=== PATIENT | female | born 1970 ===

== ENCOUNTER 2023-07-23 07:20 | Day surgery (SDC) | payer OTHER ==
[~2023-07-23] VITALS: Ht 167.6 cm; Wt 51.4 kg
[2023-07-23] MEDS ORDERED: NORVASC2.5 MG PO (07:42)
[2023-07-23 07:54] VITALS: BP 150/91; PULSE 68; TEMP 97.4
[2023-07-23 09:00] VITALS: BP 110/85; PULSE 81; TEMP 97.2
--- NOTE | 2023-07-23 09:00 | NUR ---
The patient arrived back to [facility] from the endoscopy suite and appears alert and oriented at this time. The patient ambulated from the cart to the recliner in her room with the stand by assistance of two nurses and appeared to tolerate the activity well. Vital signs were started at this time. The patient agrees to try some ice water and chocolate pudding. Call light is within reach. Sister at bedside. Warm blanket provided.
[2023-07-23 09:15] VITALS: BP 126/88; PULSE 62
--- NOTE | 2023-07-23 09:15 | NUR ---
The patient appears to be tolerating the water and pudding well and requests another pudding. Vital signs appear stable. [facility].
[2023-07-23 09:30] VITALS: BP 148/89; PULSE 62
--- NOTE | 2023-07-23 09:30 | NUR ---
The patient appears to be resting comfortablty in the recliner. Sister at bedside. Denies any further needs.
[2023-07-23 09:50] VITALS: BP 160/94; PULSE 60
--- NOTE | 2023-07-23 10:00 | NUR ---
The patient was escorted out via wheelchair to a private vehicle by ALBERT Pineda. The patient's belongings and discharge paperwork were sent with her. The patient's sister is present to drive her home.
--- NOTE | 2023-07-23 10:50 | NUR ---
Dr. Jackson has spoke with the patient and she voices a desire to be discharged home. Discharge instructions were reviewed with the patient and her sister. They both verbalized understanding and have no questions for the nurse at this time. The patient was instructed to get dressed and notify the staff when she is ready to be escorted out.
== END 2023-07-23 10:00 | disposition home or self-care (01) ==
LOC: SDCO 07:20
DX: Z12.11 Encounter for screening for malignant neoplasm of colon (principal); D12.5 Benign neoplasm of sigmoid colon; K22.2 Esophageal obstruction; I10 Essential (primary) hypertension; Z87.891 Personal history of nicotine dependence
CPT/HCPCS: J2704; J7120

== ENCOUNTER 2023-12-03 07:44 | Day surgery (SDC) | payer SELFPAY ==
[~2023-12-03] VITALS: Ht 167.6 cm; Wt 60.6 kg
[~2023-12-03 07:44] MED LIST: LR 1,000 ML IV SCH; NORVASC2.5 MG PO; Ondansetron 4 MG/2 ML VIAL IV PRN; PRILOTC
[2023-12-03] MEDS ORDERED: Lidocaine PF 2% (20 MG/ML) 5 ML VIAL ONE (08:18)
[2023-12-03] MEDS ORDERED: Glycopyrrolate 0.2 MG/ML 1 ML VIAL ONE (08:18)
[2023-12-03 09:27] VITALS: BP 172/91; PULSE 55; TEMP 97.8
[2023-12-03 09:55] VITALS: BP 147/93; PULSE 82; TEMP 98.2
[2023-12-03 10:10] VITALS: BP 139/88; PULSE 74
[2023-12-03 10:20] VITALS: BP 138/75; PULSE 78
--- NOTE | 2023-12-03 17:29 | NUR ---
[id number]: PT TO RECOVERY BAY 9 FROM ENDO S/P EGD WITH DILATION A&O, PLACED ON MONITOR, VSS ON RA RECEIVED REPORT AND ASSUMED CARE OF PT FROM RN BOO OGDEN AT BEDSIDE PROVIDED FOOD/FLUIDS, TOLERATING WELL DR IN TO SEE PT/FAMILY FOLLOWING PROCEDURE PT HAS REMAINED A&O, NAD, VSS ON RA, TOLERATING PO, IS WITHOUT SIGNIFICANT COMPLAINT, WITH STEADY GAIT THRU OUT STAY IV D/C'D. D/C INSTRUCTIONS, ANY FOLLOW UP REVIEWED AND HANDED TO PT. ALL QUESTIONS AND CONCERNS ADDRESSED TO PT SATISFACTION. TAKEN TO EXIT VIA W/C WITH ALL BELONGINGS AND PAPERWORK IN HAND, ASSISTED INTO PASSENGER SEAT OF POV. SISTER TO DRIVE HOME.
== END 2023-12-03 10:25 | disposition home or self-care (01) ==
LOC: SDCO 07:44
DX: K22.2 Esophageal obstruction (principal)
CPT/HCPCS: C1726; J2704; J7120